=== PATIENT | female | born 1950 | race Caucasian/White ===

== ENCOUNTER 2017-01-21 05:24 | Inpatient (IN) | payer OTHER, BC ==
[~2017-01-21] VITALS: Ht 157.5 cm; Wt 65.2 kg
[~2017-01-21 05:24] MED LIST: ACCUPRIL10 MG PO; ASPIRIN81 M2 PO; BIOTIN 5000MCG PO; BUPROPION XL150 MG PO; CENTRUM SILVER1 EAC3 PO; ERGOCALCIF50000 UNIT PO; FLEXERIL5 MG PO; FOLIC ACID1 MG PO; HYDROCODON-ACE1 EAC9 PO; IMITREX50 MG PO; LASIX20 MG PO; LEVO-T100 MCG PO; MAGNESIUM250 M1 PO; METHOTREXATE2.5 MG PO; OMEPRAZOLE40 M1 PO; ORENCIA CL125 MG/1 M SC; TOPAMAX100 MG PO; XANAX0.5 MG PO
[2017-01-21 15:37] VITALS: BP 135/65
[2017-01-21 17:43] VITALS: BP 135/65; BP 145/62
[2017-01-21 19:22] VITALS: BP 120/67
[2017-01-21 23:46] VITALS: BP 120/57
[2017-01-22 04:02] VITALS: BP 105/51
[2017-01-22 07:10] VITALS: BP 120/64
[2017-01-22 11:32] VITALS: BP 122/62
[2017-01-22 15:45] VITALS: BP 93/53
== END 2017-01-22 19:00 | disposition home or self-care (01) | DRG 460 ==
LOC: 2SOUTH 05:24 → 3EAST 05:24 → 2SOUTH 09:39 → 3EAST 15:26 → 2SOUTH 15:42 → 3EAST 01-22 19:00
PROC: 0SG0071 Fusion of Lumbar Vertebral Joint with Autologous Tissue Substitute, Posterior Approach, Posterior Column, Open Approach (ICD-10-PCS; principal; 2017-01-21)
DX: M47.817 Spondylosis without myelopathy or radiculopathy, lumbosacral region (principal); M43.19 Spondylolisthesis, multiple sites in spine; M54.2 Cervicalgia; M06.9 Rheumatoid arthritis, unspecified; M25.559 Pain in unspecified hip; M51.36 Other intervertebral disc degeneration, lumbar region; M79.1 Myalgia; M54.16 Radiculopathy, lumbar region; M79.609 Pain in unspecified limb; M46.1 Sacroiliitis, not elsewhere classified; M17.0 Bilateral primary osteoarthritis of knee
CPT/HCPCS: 72100; 76000; 86850; 86900; 86901; J0690; J1170; J1580; J1885; J2250; J2270; J2405; J3010; J3370; J3480

== ENCOUNTER 2017-01-25 20:20 | Emergency (ER) | payer OTHER, BC ==
[~2017-01-25] VITALS: Ht 157.5 cm; Wt 63.6 kg
[2017-01-25 21:19] LABS: EOSINOPHIL (%) 0.7 % (0-5); EOSINOPHIL COUNT 0.1 K/uL (0-0.3); IMMATURE GRANULOCYTE (%) 0.1 % (0.0-0.7); INSTRUMENT ABS NEUTROPHIL CT 5.4 K/uL; MCH 30.2 PG (29.0-34.0); MCHC 31.9 G/DL (30.0-36.0); MCV 94.5 FL (83-99); MEAN PLAT.VOLUME 9.7 uM^3 (9.5-12.4); MONOCYTE (%) 9.7 % (3-12); MONOCYTE COUNT 0.7 K/uL (0-0.8); NEUTROPHIL (%) 75.9 % (45-76); NEUTROPHIL COUNT 5.4 K/uL (1.8-6.4); PLATELET COUNT 283 K/uL (156-360); RBC DIS.WIDTH-CV 15.7 % (11.8-14.6); RBC DIS.WIDTH-SD 54.4 % (39-53); WHITE BLOOD COUNT 7.1 K/uL (4.1-10.2)
[2017-01-25 21:29] LABS: CHLORIDE 102 mEq/L (99-109); POTASSIUM 3.6 mEq/L (3.7-5.4); RED BLOOD COUNT 3.28 M/uL (3.80-5.20); SODIUM 135 mEq/L (136-147)
[2017-01-25 21:31] LABS: GLUCOSE 123 mg/dL (70-99)
[2017-01-25 21:32] LABS: ANION GAP 10 MEQ/L (2-14)
[2017-01-25 21:35] LABS: GFR ESTIMATE (CALCULATED) > 59 mL/min/
[2017-01-25 21:36] LABS: UREA NITROGEN (BUN) 10 mg/dL (9-23)
[2017-01-25 22:58] LABS: ERTH.SED.RATE 76 MM/HR (0-30)
[2017-01-26] MEDS ORDERED: KEFLEX500 MG PO (00:06)
[2017-01-26 00:13] LABS: ADD MIUA? YES; BILIRUBIN NEGATIVE; BLOOD NEGATIVE; COLOR YELLOW ((YELLOW)); GLUCOSE (STRIP) NEGATIVE; KETONES NEGATIVE; LEUKOCYTES NEGATIVE; NITRITE NEGATIVE; PROTEIN (STRIP) NEGATIVE; UROBILINOGEN 0.2 MG/DL (0.2-1.0)
[2017-01-26] MEDS ORDERED: BACTRIM,SEPT1 TABLET PO (00:36)
[2017-01-26 00:44] LABS: RED BLOOD CELLS NONE SEEN /HPF (0-5); WHITE BLOOD CELLS RARE /HPF (0-5)
[2017-01-26 00:45] LABS: CASTS NONE SEEN /LPF; CRYSTALS PRESENT; EPITHELIAL CELLS NONE SEEN /HPF; MUCUS NONE SEEN /LPF; UCUL ADDED? NO
[2017-01-26 00:46] LABS: AMORPHOUS PHOSPHATE CRYSTALS 3+; BACTERIA 3+ /HPF
[2017-01-26 01:44] VITALS: BP 148/88
== END 2017-01-26 01:45 | disposition home or self-care (01) ==
LOC: EME 20:20
PROVIDERS: Emergency Medicine
DX: T81.4XXA Infection following a procedure, initial encounter (principal); L03.312 Cellulitis of back [any part except buttock and flank]; G89.18 Other acute postprocedural pain; M54.5 Low back pain; Y83.8 Other surgical procedures as the cause of abnormal reaction of the patient, or of later complication, without mention of misadventure at the time of the procedure; Z98.1 Arthrodesis status; I10 Essential (primary) hypertension; G89.29 Other chronic pain; K21.9 Gastro-esophageal reflux disease without esophagitis; M06.9 Rheumatoid arthritis, unspecified; Z87.891 Personal history of nicotine dependence
CPT/HCPCS: 71010; 72158; 80048; 81003; 83605; 85025; 85651; 86140; 99281; 99285; J2060; J2270